=== PATIENT | male | born 1960 | race Caucasian/White ===

== ENCOUNTER → 2019-04-15 08:37 | Outpatient (BNVA) | payer BC, SELFPAY | PROVIDERS: Family Provider Nurse Practitioner; PCP Nurse Practitioner; Visit Provider Nurse Practitioner | DX: Z00.00 Encounter for general adult medical examination without abnormal findings (principal) | CPT/HCPCS: 80053; 80061; 85025 ==

== ENCOUNTER 2019-08-17 07:23 | Emergency (ER) | payer BC, SELFPAY ==
[2019-08-17] VITALS (8 sets, daily range): BP systolic 142–188; BP diastolic 80–93; PULSE 49–60; RESP 19–27; TEMP 36.7; O2SAT 51–97; BMI 32.8
--- NOTE | 2019-08-17 07:45 | XRR_ITS ---
PROCEDURE INFORMATION: Exam: XR Chest, 1 View Exam date and time: 08/17/2019 8:15 AM Age: 59 years old Clinical indication: Dyspnea TECHNIQUE: Imaging protocol: XR of the chest Views: 1 view. COMPARISON: No relevant prior studies available. FINDINGS: Lungs: Unremarkable. No consolidation. Pleural space: Unremarkable. No pleural effusion. No pneumothorax. Heart/Mediastinum: Unremarkable. No cardiomegaly. Bones/joints: Unremarkable. XR/XR chest 1V portable [id number] IMPRESSION: No acute findings.
--- NOTE | 2019-08-17 07:46 | W.ED.SOB ---
HPI - SOB/Dyspnea General: Chief Complaint: Shortness of Breath/Dyspnea Stated Complaint: SOB Time Seen by Provider: 08/17/19 07:42 History of Present Illness: HPI Narrative: 59 yo male presents with complaints fo dyspnea related to asthma. He states he has had this for the last months been getting progressively worse he has not been on any antibiotics or steroids since around Sand[place] time he states he has had a productive cough almost constantly since then yellow and greenish but lately here in the last week it has changed and become more prominent. He has not seen his doctor recently he works any [employer] at home he has not had any known exposure to COVID at his work he works in [place]. He did use his inhaler about 5 times yesterday that did seem to help. He denies any chest pain to me initially but then later related he did have some chest discomfort to the nurse when I questioned him again he admitted he did have some chest discomfort but no radiation no association with exertion was more associated with his cough. Denies any GI or symptoms. MD elicited complaint: shortness of breath and cough Pertinent past history: asthma Onset (ago): month(s) Context: occurred during exertion Timing: constant Severity: moderate Exacerbating factors: exertion and coughing Relieving factors: rest and bronchodilators Known history of: asthma Associated symptoms: Reports chest congestion, chest pain and cough; Deny abdominal pain, fever(s), hemoptysis, nausea, orthopnea or vomiting Treatment prior to arrival: bronchodilator Review of Systems Const: Denies: fever(s) ENMT: Denies: throat pain, ear or mastoid pain, nasal discharge or nasal congestion Card: Reports: chest pain; Denies: orthopnea Resp: Reports: chest congestion; Denies: hemoptysis GI: Denies: abdominal pain, nausea, vomiting, hematemesis, coffee ground emesis, diarrhea, constipation, bloating, hematochezia or melena : Denies: flank pain, dysuria, urinary frequency or urinary urgency Skin/Breast: Denies: rash or pruritus PFSH ED PFSH: Medical History Arthritis Asthma Surgical History S/P hernia repair Social History (Reviewed 08/17/19 @ 08:56 by GAVI Henderson Smoking and tobacco status: never smoked Alcohol intake: never History of recent travel: No Physical Exam Const: COMMON NORMALS: no acute distress GENERAL APPEARANCE: cooperative and comfortable ORIENTATION/CONSCIOUSNESS: Yes awake, Yes oriented to person, Yes oriented to place and Yes oriented to time HENMT: COMMON NORMALS: normocephalic, atraumatic, hearing grossly normal bilaterally, external ears normal, EAC's normal, TM's normal bilaterally, Normal nasal mucous membranes and turbinates present, moist oral mucous membranes and oropharynx normal HEAD & SCALP: normocephalic and atraumatic NOSE: Normal nasal mucous membranes and turbinates present EXTERNAL EAR: Yes external ears normal EXTERNAL AUDITORY CANAL: EAC's normal TYMPANIC MEMBRANE: TM's normal bilaterally Eye: COMMON NORMALS: Equal, round and reactive pupils present, EOMs intact bilaterally, conjunctivae normal and no scleral icterus CONJUNCTIVA: Yes conjunctivae normal PUPIL: Yes Equal, round and reactive pupils present Neck/C-Spine: COMMON NORMALS: full ROM, no lymphadenopathy, supple and no JVD Lymph: LYMPHATIC: no lymphadenopathy noted and no lymphedema noted Resp: EFFORT & INSPECTION: Yes uses accessory muscles AUSCULTATION: rhonchi, wheezes and diminished lung sounds Cardio: COMMON NORMALS: no JVD, regular rate, regular rhythm and No murmurs present (Cardio) RATE: regular rate RHYTHM: regular rhythm GI: COMMON NORMALS: Soft to palpation and No hepatosplenomegaly present AUSCULTATION: Yes normoactive bowel sounds PALPATION: Yes Soft to palpation, No Tenderness to palpation present (GI), No Guarding due to palpation present (GI) and Yes No hepatosplenomegaly present Extremity: COMMON NORMALS: normal to inspection, capillary refill normal, no clubbing, cyanosis or edema, no calf tenderness and no pedal edema Neuro: SENSORIUM/ORIENTATION: Yes oriented to person, Yes oriented to place and Yes oriented to time Skin: COMMON NORMALS: no rashes or lesions noted GENERAL SKIN EXAM: no rashes or lesions noted Course Vital Signs: Vital signs: Vital Signs Temperature 98.1 F 08/17/19 07:35 Pulse Rate 51 L 08/17/19 11:12 Respiratory Rate 20 H 08/17/19 11:12 Blood Pressure 142/80 08/17/19 11:12 Pulse Oximetry 96 08/17/19 11:12 MDM - SOB/Dyspnea MDM Narrative: Medical decision making narrative: Patient is doing much better after nebulizers. He feels better and would like to go normally have anything that would he would require to stay in the hospital for at this time on reexam his chest is very clear. Asked him to quarantine himself until we get the COVID testing back we will put him on steroids.doxycycline because of the productive cough and nebulizers. Follow-up with his primary care doctor within 3 to 5 days. Lab Data: Labs: Lab Results 08/17/19 08/17/19 08/17/19 Range/Units 07:53 07:53 07:53 WBC 9.2 (4.0-10.0) 10^3/ uL RBC 5.07 (4.1-5.3) 10^6/u L Hgb 15.3 (11.7-16.6) g/dL Hct 44.9 (42.0-52.0) % MCV 88.6 (80-94) fL MCH 30.2 (28.0-34.0) pg MCHC 34.1 (30.0-36.0) g/dL RDW 13.2 (12.1-15.1) % Plt Count 257 (130-400) 10^3/c mm MPV 9.9 (7.4-10.4) fL Neut % (Auto) 62.5 % Lymph % (Auto) 17.1 % [place] % (Auto) 7.5 % Eos % (Auto) 12.3 % Baso % (Auto) 0.2 % Neut # (Auto) 5.8 (1.8-7.7) 10^3/u L Lymph # (Auto) 1.6 (0.8-4.8) 10^3/u L [place] # (Auto) 0.7 (0.2-0.9) 10^3/u L Eos # (Auto) 1.1 H (0.0-0.8) 10^3/u L Baso # (Auto) 0.0 (0.0-0.1) 10^3/u L Nucleated RBC % (a uto) 0 % Nucleated RBCs # 0.0 /100WBC Specimen Type Sample Site ABG pH (7.35-7.45) ABG pCO2 (35-45) mmHg ABG pO2 (80.0-100.0) mmH g ABG HCO3 (22-26) mmol/L ABG O2 Saturation ABG Base Excess (-2.0-2.0) mmol/ L Delio Test A-a O2 Gradient (5-10) mmHg Hematocrit (42-52) % Hgb O2 Saturation (95-100) % Carboxyhemoglobin (0.4-20.1) %THgb Methemoglobin (0.4-1.5) % Total Hemoglobin (14-18) g/dL Ionized Calcium (1.1-1.4) mmol/L O2 Delivery Device Liquified [employer] Specialist ID Sodium 139 (136-145) mmol/L Potassium 4.0 (3.5-5.1) mmol/L Chloride 103 (98-107) mmol/L Carbon Dioxide 26 (22-29) mmol/L Anion Gap 14.0 (5-19) BUN 9 (8-23) mg/dL Creatinine 0.6 L (0.7-1.2) mg/dL GFR Calculation 137.4 H (90-130) mL/min Glucose 114 (65-115) mg/dL Calculated Osmolal ity 285 (285-295) mOsm/k g Calcium 10.0 (8.5-10.5) mg/dL Total Bilirubin 0.6 (0.15-1.2) mg/dL AST 24 (0-40) U/L ALT 23 (0-41) U/L Alkaline Phosphata se 70 (40-130) IU/L Troponin T Baselin e 11 (0-15) ng/L Troponin T 120 Min nikolski (0-15) ng/L Delta Troponin T (0-10) ABS# Total Protein 7.1 (6.6-8.7) g/dL Albumin 4.8 (3.5-5.2) g/dL Globulin 2.3 (1.3-4.6) g/dL 08/17/19 08/17/19 Range/Units 08:26 09:59 WBC (4.0-10.0) 10^3/ uL RBC (4.1-5.3) 10^6/u L Hgb (11.7-16.6) g/dL Hct (42.0-52.0) % MCV (80-94) fL MCH (28.0-34.0) pg MCHC (30.0-36.0) g/dL RDW (12.1-15.1) % Plt Count (130-400) 10^3/c mm MPV (7.4-10.4) fL Neut % (Auto) % Lymph % (Auto) % [place] % (Auto) % Eos % (Auto) % Baso % (Auto) % Neut # (Auto) (1.8-7.7) 10^3/u L Lymph # (Auto) (0.8-4.8) 10^3/u L [place] # (Auto) (0.2-0.9) 10^3/u L Eos # (Auto) (0.0-0.8) 10^3/u L Baso # (Auto) (0.0-0.1) 10^3/u L Nucleated RBC % (a uto) % Nucleated RBCs # /100WBC Specimen Type Arterial Sample Site Radial, right ABG pH 7.41 (7.35-7.45) ABG pCO2 40.5 (35-45) mmHg ABG pO2 84.1 (80.0-100.0) mmH g ABG HCO3 25.7 (22-26) mmol/L ABG O2 Saturation 97.1 ABG Base Excess 1.0 (-2.0-2.0) mmol/ L Delio Test Pos A-a O2 Gradient 14.5 H (5-10) mmHg Hematocrit 46.1 (42-52) % Hgb O2 Saturation 95.7 (95-100) % Carboxyhemoglobin 0.8 (0.4-20.1) %THgb Methemoglobin 0.7 (0.4-1.5) % Total Hemoglobin 15.0 (14-18) g/dL Ionized Calcium 1.2 (1.1-1.4) mmol/L O2 Delivery Device Room air Liquified [employer] Specialist ID cak Sodium 142.0 (136-145) mmol/L Potassium 3.8 (3.5-5.1) mmol/L Chloride (98-107) mmol/L Carbon Dioxide (22-29) mmol/L Anion Gap (5-19) BUN (8-23) mg/dL Creatinine (0.7-1.2) mg/dL GFR Calculation (90-130) mL/min Glucose 110.0 (65-115) mg/dL Calculated Osmolal ity (285-295) mOsm/k g Calcium (8.5-10.5) mg/dL Total Bilirubin (0.15-1.2) mg/dL AST (0-40) U/L ALT (0-41) U/L Alkaline Phosphata se (40-130) IU/L Troponin T Baselin e (0-15) ng/L Troponin T 120 Min nikolski 10.29 (0-15) ng/L Delta Troponin T -0.71 L (0-10) ABS# Total Protein (6.6-8.7) g/dL Albumin (3.5-5.2) g/dL Globulin (1.3-4.6) g/dL Discharge Plan Discharge Patient Disposition: Home, Self-Care Clinical Impression: Asthma with exacerbation Condition: Stable Prescriptions: New doxycycline hyclate 100 mg capsule 100 mg PO BID 10 Days Qty: 20 RF: 0 Medrol (Mario) 4 mg tablets,dose pack See Rx Instructions .ROUTE .COMPLEX Qty: 21 RF: 0 ipratropium-albuterol 0.5 mg-3 mg(2.5 mg base)/3 mL solution for nebulization 3 ml INHALATION Q6H Qty: 180 RF: 0 No Action Tart Witt 29-194-61-75-20 mg capsule 1 cap PO BID RF: 0 albuterol sulfate [ProAir HFA] 90 mcg/actuation HFA aerosol inhaler 2 puff INHALATION Q6H PRN (Reason: shortness of breath or wheezing) Qty: 18 RF: 1 Tylenol Extra Strength 500 mg Tablet 1,000 mg PO PRN RF: 0 Aleve 220 mg Tablet 440 mg PO PRN RF: 0 ibuprofen 800 mg tablet 800 mg PO TID PRN (Reason: Pain) RF: 0 Discharge Orders: Discharge Order (Routine); Ordered 08/17/19 Ordered By: Yoel Andrade Referrals: Vera Arriaza FNP [Primary Care Provider] - Activity Restrictions/Additional Instructions: Follow-up with your primary care doctor in the next 3 days. We asked that you remain in self quarantined until the results of your COVID test return. We should call you with them by noon tomorrow. Discharge Date/Time: 08/17/19 11:12 Coding Level of Care Code ED Lurer for Chg Fwd Exam Comprehensive
--- NOTE | 2019-08-17 08:00 | ECG_ITS ---
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 Measurements Intervals [place] Rate: 52 P: 75 [place]: 136 QRS: -8 QRSD: 109 T: -26 QT: 414 QTc: 386 Interpretive Statements SINUS BRADYCARDIA ST DEPRESSION, CONSIDER SUBENDOCARDIAL INJURY [0.1+ mV ST DEPRESSION] No previous ECG available for comparison Electronically Signed On 08-18-2019 17:11:29 CDT by Katie Doyle M.D. [id number]
[2019-08-17 08:06] LABS: Basophils % 0.2 %; Eosinophils # 1.1 10^3/uL (0.0-0.8); Eosinophils % 12.3 %; Hematocrit 44.9 % (42.0-52.0); Hemoglobin 15.3 g/dL (11.7-16.6); Lymphocytes # 1.6 10^3/uL (0.8-4.8); Lymphocytes % 17.1 %; Mean Corpuscular HGB Conc 34.1 g/dL (30.0-36.0); Mean Corpuscular Hemoglobin 30.2 pg (28.0-34.0); Mean Corpuscular Volume 88.6 fL (80-94); Mean Platelet Volume 9.9 fL (7.4-10.4); Monocytes # 0.7 10^3/uL (0.2-0.9); Monocytes % 7.5 %; Neutrophils # 5.8 10^3/uL (1.8-7.7); Neutrophils % 62.5 %; Nucleated Red Blood Cells % 0 %; Platelet Count 257 10^3/cmm (130-400); Red Blood Count 5.07 10^6/uL (4.1-5.3); Red Cell Distribution Width 13.2 % (12.1-15.1); White Blood Count 9.2 10^3/uL (4.0-10.0)
[2019-08-17] MEDS: azithromycin 500 MG in sodium chloride 0.9% 250 ML 250 MG IV (08:11)
[2019-08-17] MEDS: cefTRIAXone 1,000 MG in sodium chloride 0.9% (plus) 50 ML 100 MG IV (08:12)
--- NOTE | 2019-08-17 08:23 | PC.NURSE ---
UA and COVID swab sent to lab at this time.
[2019-08-17 08:24] LABS: Alanine Aminotransferase 23 U/L (0-41); Albumin Level 4.8 g/dL (3.5-5.2); Alkaline Phosphatase 70 IU/L (40-130); Aspartate Amino Transferase 24 U/L (0-40); Blood Urea Nitrogen 9 mg/dL (8-23); Carbon Dioxide 26 mmol/L (22-29); Chloride 103 mmol/L (98-107); Globulin 2.3 g/dL (1.3-4.6); Glomerular Filtration Rate 137.4 mL/min (90-130); Glucose 114 mg/dL (65-115); Osmolality Calculated 285 mOsm/kg (285-295); Sodium 139 mmol/L (136-145); Total Bilirubin 0.6 mg/dL (0.15-1.2); Total Protein 7.1 g/dL (6.6-8.7)
[2019-08-17 08:25] LABS: Troponin(5th) Baseline 11 ng/L (0-15)
[2019-08-17] MEDS: albuterol 8 gm MDI 2 PUFF INHALATION (08:28)
[2019-08-17 08:37] LABS: ABG PCO2 40.5 mmHg (35-45); ABG PH Result 7.41 (7.35-7.45); Alveolar-Arterial Oxygen Gradi 14.5 mmHg (5-10); Arterial Blood Gas Hematocrit 46.1 % (42-52); Blood Gas Allen Test Pos; Blood Gas Sample Site Radial, right; Blood Gas Sample Type Arterial; Carboxyhemoglobin 0.8 %THgb (0.4-20.1); HCO3 ABG 25.7 mmol/L (22-26); HGB O2 Sat 95.7 % (95-100); Ionized Calcium Level - ABG 1.2 mmol/L (1.1-1.4); Methemoglobin 0.7 % (0.4-1.5); Oxygen Device ROOM AIR; Oxygen Saturation ABG 97.1; PO2 ABG 84.1 mmHg (80.0-100.0); Potassium Level - ABG 3.8 mmol/L (3.5-5.0)
--- NOTE | 2019-08-17 10:00 | ECG_ITS ---
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 Measurements Intervals [place] Rate: 56 P: 57 [place]: 159 QRS: 1 QRSD: 98 T: 47 QT: 395 QTc: 381 Interpretive Statements SINUS BRADYCARDIA No previous ECG available for comparison Electronically Signed On 08-18-2019 17:24:13 CDT by Katie Doyle M.D. [id number]
[2019-08-17 10:21] LABS: Troponin 5 2HR 10.29 ng/L (0-15)
[2019-08-17 10:33] LABS: Troponin 5 2HR Delta -0.71 ABS# (0-10)
[2019-08-18 11:59] LABS: Coronavirus Lab Test PTC NOT DETECTED
== END 2019-08-17 11:12 | disposition home or self-care (01) ==
PROVIDERS: Emergency Provider Family Medicine; Family Provider Nurse Practitioner; PCP Nurse Practitioner
DX: J45.901 Unspecified asthma with (acute) exacerbation (principal)
CPT/HCPCS: 12345; 36415; 36600; 71045; 80051; 80053; 82810; 83986; 84484; 85025; 87635; 93005; 94640; 96365; 96367; 96375; 99283; 99284; J0456; J0696; J2930; J3535; J7050

== ENCOUNTER → 2021-03-08 12:02 | Outpatient (BNVA) | payer BC, SELFPAY | PROVIDERS: Family Provider Nurse Practitioner; PCP Family Medicine Adult Medicine; Visit Provider Family Medicine Adult Medicine | DX: E66.9 Obesity, unspecified (principal); I10 Essential (primary) hypertension | CPT/HCPCS: 80053; 84443; 85025 ==

== ENCOUNTER → 2021-09-12 08:03 | Outpatient (BNVA) | payer BC, SELFPAY | PROVIDERS: Family Provider Nurse Practitioner; PCP Family Medicine Adult Medicine; Visit Provider Family Medicine Adult Medicine | DX: I10 Essential (primary) hypertension (principal); E66.9 Obesity, unspecified; R73.03 Prediabetes | CPT/HCPCS: 80053; 83036; 84443; 85025 ==

== ENCOUNTER 2021-11-19 12:46 | Emergency (ER) | payer OTHER, BC, SELFPAY ==
[2021-11-19 12:50] VITALS: BP 155/77; PULSE 61; RESP 18; TEMP 36.5; O2SAT 97; BMI 29.9
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
--- NOTE | 2021-11-19 13:36 | CT_ITS ---
WS: [id number] CT HEAD NONCONTRAST HISTORY: Fall last night and hit head denies LOC TECHNIQUE: Contiguous axial imaging performed through the brain in 2.5 mm imaging. Bone and soft tiss ue windows. Sagittal and coronal reformats reviewed. All CT scans at [facility] use at least one of these dose optimization techniques: automated exposure control; mA and/or kV adjustment per pa tient size (includes targeted exams where dose is matched to clinical indication); or iterative recon struction. DLP: 1035.04 mGy.cm COMPARISON: None available. No acute intracranial hemorrhage, midline shift or mass effect. No atrophy or prior infarcts or herniation. Minimal small vessel ischemic disease. Ventricles: Normal size with no hydrocephalus. No inferior displacement of cerebellar tonsils. There is a small amount of calcium in the distal LEFT vertebral artery. Paranasal sinuses: Mild mucoperiosteal thickening in the ethmoid air cells. Mastoid air cells: Well pneumatized. Calvarium and scalp: Skull is intact with no soft tissue edema or swelling. CT/CT head wo con* [id number] IMPRESSION: 1. No acute intracranial hemorrhage or edema. 2. No skull fracture.
== END 2021-11-19 14:46 | disposition home or self-care (01) ==
PROVIDERS: Emergency Provider Physician Assistant; PCP Family Medicine Adult Medicine
DX: S13.4XXA Sprain of ligaments of cervical spine, initial encounter (principal); S09.8XXA Other specified injuries of head, initial encounter; J44.9 Chronic obstructive pulmonary disease, unspecified; E78.5 Hyperlipidemia, unspecified; I10 Essential (primary) hypertension; V43.62XA Car passenger injured in collision with other type car in traffic accident, initial encounter
CPT/HCPCS: 70450; 72040; 99284

== ENCOUNTER 2024-01-29 08:35 | Outpatient (CLI) | payer MEDICARE, SELFPAY ==
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
== END 2024-01-29 08:36 | disposition home or self-care (01) ==
LOC: RAD 08:40
PROVIDERS: PCP Family Medicine; Visit Provider Emergency Medicine
DX: S70.02XA Contusion of left hip, initial encounter (principal); W19.XXXA Unspecified fall, initial encounter
CPT/HCPCS: 73502

== ENCOUNTER → 2024-05-16 08:42 | Outpatient (BNVA) | payer MEDICARE, SELFPAY | PROVIDERS: PCP Family Medicine; Visit Provider Nurse Practitioner Family | DX: R05.9 Cough, unspecified (principal); R09.89 Other specified symptoms and signs involving the circulatory and respiratory systems | CPT/HCPCS: 87400; 87426 ==

== ENCOUNTER → 2024-07-20 13:00 | Outpatient (BNVA) | payer MEDICARE, SELFPAY | PROVIDERS: PCP Family Medicine; Visit Provider Family Medicine | DX: E78.5 Hyperlipidemia, unspecified (principal); R05.3 Chronic cough; J42 Unspecified chronic bronchitis; E55.9 Vitamin D deficiency, unspecified; Z12.5 Encounter for screening for malignant neoplasm of prostate; R79.89 Other specified abnormal findings of blood chemistry | CPT/HCPCS: 80053; 80061; 82306; 82607; 84439; 84443; 85025; 85651; 86140; 86431; G0103 ==

== ENCOUNTER → 2024-11-18 10:10 | Outpatient (BNVA) | payer MEDICARE, SELFPAY | PROVIDERS: PCP Family Medicine; Visit Provider Nurse Practitioner Family | DX: R05.9 Cough, unspecified (principal) | CPT/HCPCS: 87400; 87426 ==